=== PATIENT | male | born 1955 | race Caucasian/White ===

== ENCOUNTER 2016-07-01 10:59 | Emergency (ER) | payer BC ==
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
[2016-07-01] MEDS ORDERED: HYDROmorphone HCL 1 MG/ML DISP.SYRIN IV ONE (13:37)
[2016-07-01] MEDS ORDERED: HYDROmorphone HCL 1 MG/ML DISP.SYRIN ONE (13:43)
[2016-07-01 14:12] VITALS: BP 153/88
== END 2016-07-01 14:52 | disposition short-term general hospital (02) ==
LOC: ER 10:59
DX: S02.2XXA Fracture of nasal bones, initial encounter for closed fracture (principal); S12.000A Unspecified displaced fracture of first cervical vertebra, initial encounter for closed fracture; S00.81XA Abrasion of other part of head, initial encounter; W10.9XXA Fall (on) (from) unspecified stairs and steps, initial encounter; Y92.009 Unspecified place in unspecified non-institutional (private) residence as the place of occurrence of the external cause; F10.10 Alcohol abuse, uncomplicated; E11.9 Type 2 diabetes mellitus without complications

== ENCOUNTER 2019-11-19 14:12 | Observation (INO) ==
[2019-11-19] MEDS ORDERED: MULTIVIT INFUSN,ADULT 4,VIT K 10 ML, THIAMINE HCL 100 MG in NORMAL SALINE 1,000 ML IV SCH ×2 (14:15→17:30)
[2019-11-19] MEDS ORDERED: DEXTROSE 50%-WATER 50 ML SYRG ONE (14:17)
[2019-11-19] MEDS ORDERED: DEXTROSE 50%-WATER 50 ML SYRG IV ONE (14:20)
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
[2019-11-19 14:39] LABS: Hemoglobin 14.1 gm/dL (13.5-18.0); Mean Cell Volume 96.1 fl (78-100); Mean Corpuscular Hemoglobin 30.8 pg (27-31); Mean Platelet Volume 8.7 fl (8-11.3); Neutrophil # 3.1 K/mm3 (1.3-6.0); Neutrophil % 56.8 % (42-75.0); Platelet Count 221 K/mm3 (150-450); Red Blood Count 4.58 M/mm3 (4.7-6.0); White Blood Count 5.5 K/mm3 (4.0-10.5)
[2019-11-19 14:41] LABS: Urine Bilirubin Negative (NEGATIVE); Urine Blood Negative /ul (NEGATIVE); Urine Ketone 5 mg/dL (NEGATIVE); Urine Nitrite Negative (NEGATIVE); Urine Protein Negative (NEGATIVE); Urine Specific Gravity 1.025 SP.GR. (1.005-1.030); Urine Urobilinogen Normal (NORMAL); Urine pH 5.5 pH (5.0-7.0)
[2019-11-19 14:57] LABS: Troponin I Less than 0.017 ng/mL (0.00-0.10)
[2019-11-19 14:58] LABS: ALT 63 U/L (19-67); AST 58 U/L (0-48); Albumin * 3.8 gm/dl (3.4-5.0); Alkaline Phosphatase * 85 U/L (50-170); Anion Gap 14.4 mmol/L (6.8-13.8); Bilirubin, Total 0.3 mg/dL (0.0-1.1); Blood Urea Nitrogen 16 mg/dL (6-23); CK Total * 76 U/L (0-259); Ca. Corrected For Albumin 8.4 mg/dL (8.4-10.2); Calcium * 8.6 mg/dL (7.9-10.9); Carbon Dioxide 27.5 mmol/L (24-32.6); Chloride 100 mmol/L (97-106); Glucose * 161 mg/dL (70-110); Lipase 97 U/L (73-393); Potassium 3.9 mmol/L (3.4-4.6); Salicylate Less than 2.8 mg/dL (2.8-20.0); Sodium 138 mmol/L (132-142)
[2019-11-19 15:00] LABS: Cocaine Ur Negative (NEGATIVE); Urine Appearance Clear (CLEAR); Urine Barbiturate Negative (NEGATIVE); Urine Benzodiazepines Negative (NEGATIVE); Urine Color Yellow; Urine Opiates Negative (NEGATIVE); Urine PCP Negative (NEGATIVE); Urine THC Negative (NEGATIVE)
[2019-11-19 15:01] LABS: Urine Bacteria None Seen; Urine RBC None Seen /hpf (0-5); Urine WBC None Seen /hpf (0-5)
[2019-11-19] MEDS ORDERED: ACETAMINOPHEN 325 MG TABLET PO PRN (17:20)
[2019-11-19] MEDS ORDERED: PANTOPRAZOLE SODIUM 40 MG in NORMAL SALINE 100 ML IV SCH (17:30)
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
[2019-11-19] MEDS ORDERED: INSULIN REGULAR, HUMAN 100 UNITS/ML VIAL SC SCH (21:00)
[2019-11-20 00:10] VITALS: BP 0/0
--- NOTE | 2019-11-20 08:47 | DS ---
(1) Fall (on) (from) other stairs and steps, initial encounter Problem: Acute (2) Alcohol abuse Problem: Acute (3) AMS (altered mental status) Problem: Acute (4) Alcohol intoxication delirium Problem: Acute (5) Elevated lactic acid level Problem: Acute (6) Diabetes mellitus Problem: Chronic Qualifiers: Diabetes mellitus type: type 2 Diabetes mellitus retirement insulin use: without bed bug exterminator use (7) Depression Problem: Chronic Date of Discharge:: 11/19/19 Hospital Course: 64-year-old male admitted for altered mental status secondary to intoxication with alcohol and a fall that occurred in a hotel room when the patient became drunk, decided to leave AMA late last night shortly after discharge. As the patient became more sober and he realized that he was in the hospital he demanded to go home and eventually pulled out his IV and ordered for his Irene catheter to be removed. Shortly after that the patient decided to sign all appropriate documents to leave AGAINST MEDICAL ADVICE. He left with stable vitals and apparently had no acute symptoms, he was oriented x3 and left the facility in a cab. Procedures Performed: none Results and Findings: Pending Mircobiology Results 11/19/19 14:18 Urine,Catheterized Urine Culture - Preliminary No Growth Lab Pending Results 11/19/19 14:18: Urine Color Yellow, Urine Appearance Clear, Urine pH 5.5, Ur Specific [place] 1.025, Urine Protein Negative, Urine Glucose (UA) Negative, Urine Ketones 5, Urine Blood Negative, Urine Nitrate Negative, Urine Bilirubin Negative, Urine Urobilinogen Normal, Ur Leukocyte Esterase Negative, Urine RBC None seen, Urine WBC None seen, Ur Epithelial Cells None seen, Urine Bacteria None seen, Urine Culture Comments Culture to follow 11/19/19 14:18: Urine Opiates Screen Negative, Barbiturate Screen Negative, Ur Phencyclidine Scrn Negative, Urine Amphetamine Negative, U Benzodiazepines Scrn Negative, Urine Cocaine Screen Negative, Urine Marijuana (THC) Negative 11/19/19 14:25: WBC 5.5, RBC 4.58 L, Hgb 14.1, Hct 44.0, MCV 96.1, MCH 30.8, MCHC 32.0, RDW 13.0, Plt Count 221, MPV 8.7, Immature Gran % (Auto) 0.40, Immature Gran # (Auto) 0.02, Neutrophils % 56.8, Lymphocytes % 29.6, Monocytes % 10.6 H, Eosinophils % 1.3, Basophils % 1.3 H, Nucleated RBC % 0.0, Neutrophils # 3.1, Lymphocytes # 1.62, Monocytes # 0.6, Eosinophils # 0.1, Absolute Basophils 0.1 11/19/19 14:25: Sodium 138, Plasma Sodium 139, Potassium 3.9, Chloride 100, Carbon Dioxide 27.5, Anion Gap 14.4 H, BUN 16, Creatinine 1.07, Est GFR (Non-Af Amer) 74, BUN/Creatinine Ratio 15.0, Random Glucose 161 H, Calcium 8.6, Calcium Adj for Albumin 8.4, Total Bilirubin 0.3, AST 58 H, ALT 63, Alkaline Phosphatase 85, Creatine Kinase 76, Troponin I Less than 0.017, Total Protein 8.0, Albumin 3.8, Lipase 97, Salicylates Less than 2.8 L, Acetaminophen Less than 0.2 L, Ethyl Alcohol 465.0 H 11/19/19 14:25: Lactic Acid, Venous 4.5 H* 11/19/19 14:25: Ammonia Less than 17.0 11/19/19 17:23: Lactic Acid, Venous 3.6 H* Disposition: Against medical advice Condition: Fair Discharge Activity: Activity as tolerated Discharge Diet: Consistent carbs Complete Home Medications List: Complete Home Medication List: Aspirin [Aspirin Chewable] 81 mg PO DAILY 07/01/16 metFORMIN HCL [Glumetza] 1,000 mg PO BID 07/01/16 Escitalopram Oxalate [Lexapro] 10 mg PO DAILY 11/19/19
[2019-11-20] MEDS ORDERED: DULoxetine HCL 20 MG CAPSULE.SA PO SCH (09:00)
[2019-11-20] MEDS ORDERED: CITALOPRAM HYDROBROMIDE 10 MG TABLET PO SCH (09:00)
[2019-11-20] MEDS ORDERED: ASPIRIN 81 MG TAB.CHEW PO SCH (09:00)
[2019-11-20] MEDS ORDERED: FOLIC ACID 1 MG TABLET PO SCH (09:00)
== END 2019-11-19 23:47 | disposition left against medical advice (07) ==
LOC: ER 14:12 → MERGE 14:12 → MS 14:12
PROVIDERS: ADMIT Family Medicine; ATTEND Family Medicine
DX: R74.0 Nonspecific elevation of levels of transaminase and lactic acid dehydrogenase [LDH]; Z53.29 Procedure and treatment not carried out because of patient's decision for other reasons; F10.121 Alcohol abuse with intoxication delirium; E11.9 Type 2 diabetes mellitus without complications; R41.82 Altered mental status, unspecified
CPT/HCPCS: 36415; 70450; 72125; 80053; 80307; 81001; 82140; 82550; 83605; 83690; 84484; 85025; 87086; 93005; 96365; 96366; 96367; 96375; 99284; 99285; G0378